=== PATIENT | female | born 1960 | race Caucasian/White ===

== ENCOUNTER 2016-11-07 14:40 | Emergency (ER) | payer MEDICAID, OTHER ==
[2016-11-07 15:01] VITALS: BP 129/88
--- NOTE | 2016-11-07 16:16 | UC ---
Hand/Wrist HPI - HPI Summary HPI Summary: JING ABOUT 3 HOURS REHAB LIAISON. RIGHT WRIST SWELLING AND PAIN. - History Of Current Complaint Chief Complaint: UCUpperExtremity Stated Complaint: WRIST INJURY Time Seen by Provider: 11/07/16 15:53 Hx Obtained From: Patient Onset/Duration: Sudden Onset, Lasting Hours, Still Present Severity Initially: Moderate Severity Currently: Moderate Pain Intensity: 7 Pain Scale Used: 0-10 Numeric Character Of Pain: Aching Aggravating Factor(s): Movement Alleviating: Nothing Associated Signs And Symptoms: Positive: Swelling Related History: Dominant Hand Right - Allergies/Home Medications Allergies/Adverse Reactions: Allergies Allergy/AdvReac Type Severity Reaction Status Date / Time No Known Allergies Allergy Verified 11/10/14 12:25 Home Medications: Home Medications Terbinafine HCl [Lamisil] 250 mg PO 11/07/16 [History] PMH/Surg Hx/FS Hx/Imm Hx Previously Healthy: Yes - Surgical History Surgical History: Yes Surgery Procedure, Year, and Place: hysterectomy, finger as a teenager - Family History Known Family History: Positive: Hypertension - Social History Alcohol Use: Rare Substance Use Type: None Smoking Status (MU): Heavy Every Day Tobacco Smoker Type: Cigarettes Amount Used/How Often: 1/2ppd Review of Systems Constitutional: Negative Respiratory: Negative Cardiovascular: Negative Gastrointestinal: Negative Musculoskeletal: Arthralgia, Decreased ROM, Edema All Other Systems Reviewed And Are Negative: Yes Physical Exam Triage Information Reviewed: Yes Appearance: Well-Appearing, No Pain Distress, Well-Nourished Vital Signs: Initial Vital Signs Temp 97.0 F 11/07/16 14:56 Pulse 79 11/07/16 14:56 Resp 18 11/07/16 14:56 BP 129/88 11/07/16 14:56 Pulse Ox 98 11/07/16 14:56 Vital Signs Reviewed: Yes Eyes: Positive: Conjunctiva Clear ENT: Positive: Hearing grossly normal Neck: Positive: Supple Respiratory: Positive: No respiratory distress, No accessory muscle use Cardiovascular: Positive: Pulses Normal Abdomen Description: Positive: Soft Musculoskeletal: Positive: ROM Limited @ - RIGHT WRIST AND HAND, Edema @ - RIGHT WRIST, Other: - TTP RIGHT WRIST ULNAR SIDE AND ANATOMIC SNUFFBOX Neurological: Positive: Alert Psychological: Positive: Age Appropriate Behavior Skin: Negative: rashes Diagnostics - Radiology RIGHT HAND XRAY Xray Interpretation: Positive (See Comments) - SUSPECT FRACTURES INVOLVING THE PROXIMAL FOURTH AND FIFTH METACARPALS Radiology Interpretation Completed By: Radiologist RIGHT WRIST XRAY Xray Interpretation: Positive (See Comments) - INTRA-ARTICULAR FRACTURE BASE OF FIFTH METACARPAL. PROBABLE FRACTURE BASE OF FOURTH METACARPAL Radiology Interpretation Completed By: Radiologist Hand/Wrist Course/Dx - Differential Dx/Diagnosis Provider Diagnoses: INTRA-ARTICULAR FRACTURE BASE OF RIGHT FIFTH METACARPAL. PROBABLE FRACTURE BASE OF RIGHT FOURTH METACARPAL Discharge - Discharge Plan Condition: Stable Disposition: HOME Patient Education Materials: Wrist Sprain (ED) Referrals: Lilia Reich MD [Medical Doctor] - If Needed Additional Instructions: WRIST AND HAND XRAYS UNREMARKABLE ON MY INITIAL INTERPRETATION. WE WILL CALL YOU TODAY IF RADIOLOGY READ DIFFERS. KEEP THE SPLINT ON FOR COMFORT DURING ACTIVITY AND WHILE SLEEPING. YOU SHOULD NOTICE SIGNIFICANT IMPROVEMENT OVER THE NEXT SEVERAL DAYS. OTC MEDS NEEDED FOR DISCOMFORT. FOLLOW-UP WITH YOUR PCP IF NEEDED.
--- NOTE | 2016-11-07 17:35 | RAD ---
INDICATION: Right hand injury COMPARISON: None TECHNIQUE: AP, lateral, and oblique views were obtained. FINDINGS: There are probable fractures involving the proximal aspects of the fourth and fifth metacarpals. No other fractures are evident. There are mild underlying osteoarthritic changes. IMPRESSION: SUSPECT FRACTURES INVOLVING THE PROXIMAL FOURTH AND FIFTH METACARPALS
--- NOTE | 2016-11-07 17:36 | RAD ---
INDICATION: Right wrist injury COMPARISON: Right hand same date TECHNIQUE: AP, lateral, and oblique views were obtained. FINDINGS: The 3 views of the wrist confirm the presence of an intra-articular fracture involving the of the fifth metacarpal and there is probably a fracture involving the base of the fourth metacarpal. No other fractures are evident. IMPRESSION: INTRA-ARTICULAR FRACTURE BASE OF FIFTH METACARPAL. PROBABLE FRACTURE BASE OF FOURTH METACARPAL.
== END 2016-11-07 17:27 | disposition home or self-care (01) ==
LOC: UCEAST 14:40
DX: S62.346A Nondisplaced fracture of base of fifth metacarpal bone, right hand, initial encounter for closed fracture (principal); W19.XXXA Unspecified fall, initial encounter; Y93.9 Activity, unspecified; Y92.9 Unspecified place or not applicable; Z90.710 Acquired absence of both cervix and uterus; F17.210 Nicotine dependence, cigarettes, uncomplicated
CPT/HCPCS: 99212; G0463

== ENCOUNTER 2018-04-15 13:48 | Emergency (ER) | payer OTHER ==
[2018-04-15 14:05] VITALS: BP 124/85
--- NOTE | 2018-04-15 14:40 | UC ---
Cardiac HPI - HPI Summary HPI Summary: 57-year-old woman comes in today with a chief complaint of thoracic back pain in the left scapular area. Been going on for 6 months. Initially started when she had an upper respiratory tract infection with coughing. It's underneath the left scapula. Pain is worse with any Palpation or movement. Patient denies having any rash. He started with a cough 6 months ago she still has the cough she is a smoker. Initially the pain was intermittent now it's constant. Been taking ibuprofen with very little relief. - History of Current Complaint Chief Complaint: UCBackPain Stated Complaint: BACK PAIN Time Seen by Provider: 04/15/18 14:24 Pain Intensity: 7 - Allergy/Home Medications Allergies/Adverse Reactions: Allergies Allergy/AdvReac Type Severity Reaction Status Date / Time No Known Allergies Allergy Verified 04/15/18 14:06 PMH/Surg Hx/FS Hx/Imm Hx Previously Healthy: Yes - Surgical History Surgical History: Yes Surgery Procedure, Year, and Place: hysterectomy, finger as a teenager - Family History Known Family History: Positive: Hypertension - Social History Alcohol Use: Occasionally Substance Use Type: None Smoking Status (MU): Heavy Every Day Tobacco Smoker Type: Cigarettes Amount Used/How Often: 1/2ppd Review of Systems All Other Systems Reviewed And Are Negative: Yes Constitutional: Positive: Negative Skin: Positive: Negative. Negative: Rash Eyes: Positive: Negative ENT: Positive: Negative Respiratory: Positive: Cough Cardiovascular: Positive: Chest Pain Gastrointestinal: Positive: Negative Motor: Positive: Negative Neurovascular: Positive: Negative Musculoskeletal: Positive: Other: - see hpi Neurological: Positive: Negative Psychological: Positive: Negative Is Patient Immunocompromised?: No Physical Exam Triage Information Reviewed: Yes Appearance: Well-Appearing, Well-Nourished, Pain Distress - mild with palpation/ movement of left scapula Vital Signs: Initial Vital Signs Temp 96.8 F 04/15/18 14:01 Pulse 86 04/15/18 14:01 Resp 18 04/15/18 14:01 BP 124/85 04/15/18 14:01 Pulse Ox 96 04/15/18 14:01 Vital Signs Reviewed: Yes Eye Exam: Normal Eyes: Positive: Conjunctiva Clear Neck exam: Normal Neck: Positive: Supple Respiratory: Positive: Lungs clear, Normal breath sounds, No respiratory distress, Other: - Patient is tender to the left of the thoracic spine at the level of T3 through T8 and over the left scapula. There is no rash. Pain is worse with range of motion of the left arm. Cardiovascular: Positive: RRR Musculoskeletal: Positive: Strength Intact Neurological Exam: Normal Neurological: Positive: Alert, Muscle Tone Normal Psychological Exam: Normal Psychological: Positive: Age Appropriate Behavior Skin Exam: Normal - Assessment/Plan Course Of Treatment: Order Information: CT SPINE THORACIC W/O. Accession Number : [id number]. CPT: 80648. HISTORY: pain left scapula area,cough. COMPARISONS : None. TECHNIQUE: Multiple contiguous axial CT scans of the chest were obtained without. intravenous contrast. Coronal and sagittal multiplanar reformations are also submitted for. review. Additionally, axial CT images are submitted of the thoracic spine with coronal and. sagittal multiplanar reformations. FINDINGS: Evaluation is limited due to the lack of intravenous contrast. This limits evaluation of. the solid organs and vasculature. NECK AND THYROID: The lower neck and thyroid are unremarkable. CHEST WALL: There is no lower cervical, axillary, or supraclavicular lymphadenopathy by. size criteria. HEART AND PERICARDIUM: The heart is unremarkable. AORTA AND PULMONARY VASCULATURE: There is ectasia of ascending thoracic aorta up to 3.3 cm. in diameter transversely. The aorta is tortuous. MEDIASTINUM: There is no mediastinal lymphadenopathy by size criteria. RABIA: There is no hilar lymphadenopathy by size criteria. AIRWAY AND ESOPHAGUS: The airway is unremarkable, without endobronchial filling defect. The esophagus is grossly normal. LUNG PARENCHYMA: There is a calcified granuloma of the left upper lobe on axial image 15. PLEURA: No pleural abnormalities are noted. UPPER ABDOMEN: The upper abdomen is unremarkable. BONES AND SOFT TISSUES: The visualized vertebral height. The alignment is normal. There is. minimal anterolateral marginal osteophyte formation. There is minimal costovertebral. osteoarthritis. There is mild diffuse loss of intervertebral disc height. Evaluation of. the central canal is limited on CT technique; however, there is no appreciable canalicular. mass or epidural hemorrhage. OTHER: None. IMPRESSION: 1. ECTASIA OF ASCENDING THORACIC AORTA. 2. NO ACUTE CT PATHOLOGY OF THE CHEST. 3. MILD DEGENERATIVE DISC DISEASE AND OSTEOARTHRITIS. . <Electronically signed by Luis Eduardo German MD in [place]> 04/15/18 1514. Order Information: CT CHEST W/O. Accession Number: [id number]. CPT: 42815. HISTORY: pain left scapula area, cough. COMPARISONS: None. TECHNIQUE: Multiple contiguous axial CT scans of the chest were obtained without. intravenous contrast. Coronal and sagittal multiplanar reformations are also submitted for. review. Additionally, axial CT images are submitted of the thoracic spine with coronal and. sagittal multiplanar reformations. FINDINGS: Evaluation is limited due to the lack of intravenous contrast. This limits evaluation of. the solid organs and vasculature. NECK AND THYROID: The lower neck and thyroid are unremarkable. CHEST WALL: There is no lower cervical, axillary, or supraclavicular lymphadenopathy by. size criteria. HEART AND PERICARDIUM: The heart is unremarkable. AORTA AND PULMONARY VASCULATURE: There is ectasia of ascending thoracic aorta up to 3.3 cm. in diameter transversely. The aorta is tortuous. MEDIASTINUM: There is no mediastinal lymphadenopathy by size criteria. RABIA: There is no hilar lymphadenopathy by size criteria. AIRWAY AND ESOPHAGUS: The airway is unremarkable, without endobronchial filling defect. The esophagus is grossly normal. LUNG PARENCHYMA: There is a calcified granuloma of the left upper lobe on axial image 15. PLEURA: No pleural abnormalities are noted. UPPER ABDOMEN: The upper abdomen is unremarkable. BONES AND SOFT TISSUES: The visualized vertebral height. The alignment is normal. There is. minimal anterolateral marginal osteophyte formation. There is minimal costovertebral. osteoarthritis. There is mild diffuse loss of intervertebral disc height. Evaluation of. the central canal is limited on CT technique; however, there is no appreciable canalicular. mass or epidural hemorrhage. OTHER: None. IMPRESSION: 1. ECTASIA OF ASCENDING THORACIC AORTA. 2. NO ACUTE CT PATHOLOGY OF THE CHEST. 3. MILD DEGENERATIVE DISC DISEASE AND OSTEOARTHRITIS. . <Electronically signed by Luis Eduardo German MD in [place]> 04/15/18 [address]. I discussed CT reports with the patient. Patient is tender on the scapula it hurts more when she moves her arm. The presentation examination is most consistent with musculoskeletal pain associated with the thoracic back. The plan is to follow-up with her primary care doctor. Should consider physical therapy. She declined a prescription for any opioids. She will continue the ibuprofen and we will add Flexeril. I let her know if she had any anterior chest pain or she does not feel well she needs to get reevaluated right away. We did discuss the ectasia of the aorta and this needs to be followed up with her primary care doctor. - Clinical Impression Provider Diagnosis: Thoracic back pain, Pain of left scapula, Aortic ectasia, thoracic Discharge - Sign-Out/Discharge Documenting (check all that apply): Patient Departure All imaging exams completed and their final reports reviewed: No Studies - Discharge Plan Condition: Stable Disposition: HOME Prescriptions: Cyclobenzaprine TAB* [Flexeril 10 MG TAB*] 10 mg PO TID PRN #13 tab MDD 3 PRN Reason: Pain Patient Education Materials: Back Pain (ED) Referrals: Lilia Reich MD [Medical Doctor] - Additional Instructions: FOLLOW UP WITH YOUR DOCTOR. DISCUSS PHYSICAL THERAPY WITH YOUR DOCTOR. DISCUSS THE CT FINDING OF AORTIC ECTASIA WITH YOUR DOCTOR. GO TO THE EMERGENCY DEPARTMENT FOR ANY WORSENING OF YOUR CONDITION; PAIN, WEAKNESS, SHORTNESS OF BREATH, YOU FEEL ILL OR QUESTIONS OR CONCERNS. - Billing Disposition and Condition Condition: STABLE Disposition: Home
--- NOTE | 2018-04-16 22:13 | UC ---
- Progress Note Progress Note: imaging reviewed prior to time of discharge Course/Dx - Diagnoses Provider Diagnoses: Thoracic back pain, Pain of left scapula, Aortic ectasia, thoracic Discharge - Sign-Out/Discharge Documenting (check all that apply): Post-Discharge Follow Up All imaging exams completed and their final reports reviewed: Yes - Discharge Plan Condition: Stable Disposition: HOME Prescriptions: Cyclobenzaprine TAB* [Flexeril 10 MG TAB*] 10 mg PO TID PRN #13 tab MDD 3 PRN Reason: Pain Patient Education Materials: Back Pain (ED) Referrals: Lilia Reich MD [Medical Doctor] - Additional Instructions: FOLLOW UP WITH YOUR DOCTOR. DISCUSS PHYSICAL THERAPY WITH YOUR DOCTOR. DISCUSS THE CT FINDING OF AORTIC ECTASIA WITH YOUR DOCTOR. GO TO THE EMERGENCY DEPARTMENT FOR ANY WORSENING OF YOUR CONDITION; PAIN, WEAKNESS, SHORTNESS OF BREATH, YOU FEEL ILL OR QUESTIONS OR CONCERNS. - Billing Disposition and Condition Condition: STABLE Disposition: Home
== END 2018-04-15 15:46 | disposition home or self-care (01) ==
LOC: UCEAST 13:48
DX: M25.512 Pain in left shoulder (principal); M54.6 Pain in thoracic spine; I77.819 Aortic ectasia, unspecified site; F17.210 Nicotine dependence, cigarettes, uncomplicated
CPT/HCPCS: 71250; 72128; 99212; G0463